=== PATIENT | male | born 1995 | race African-American/Black ===

== ENCOUNTER 2017-02-12 13:29 | Emergency (ER) | payer SELFPAY | END 2017-02-12 15:36 | disposition left against medical advice (07) | LOC: UCEAST 13:29 | DX: Z53.21 Procedure and treatment not carried out due to patient leaving prior to being seen by health care provider (principal) ==

== ENCOUNTER 2017-02-13 13:43 | Emergency (ER) | payer MEDICAID ==
[2017-02-13 14:10] VITALS: BP 131/65
--- NOTE | 2017-02-13 14:34 | UC ---
FLU HPI - HPI Summary HPI Summary: 21 y/o male with sore throat, cough that feels like coming from lungs, fever, chills x 4 days. + sinus pressure, pain - History of Current Complaint Chief Complaint: UCRespiratory Stated Complaint: RESP Time Seen by Provider: 02/13/17 14:12 Hx Obtained From: Patient Onset/Duration: Gradual Onset, Lasting Days Severity Currently: Mild Severity Initially: Moderate - Allergy/Home Medications Allergies/Adverse Reactions: Allergies Allergy/AdvReac Type Severity Reaction Status Date / Time Ibuprofen Allergy GI Upset Verified 01/21/16 11:58 PMH/Surg Hx/FS Hx/Imm Hx Previously Healthy: Yes - Surgical History Surgical History: Yes Surgery Procedure, Year, and Place: as , "twisted inside" - Family History Known Family History: Negative: Respiratory Disease - no FHX of asthma - Social History Alcohol Use: Rare Substance Use Type: None Substance Use Comment - Amount & Last Used: hx heroine, 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 Smoking Status (MU): Current Every Day Smoker Household Exposure Type: Cigarettes - Immunization History Most Recent Influenza Vaccination: none Review of Systems Constitutional: Fever, Chills, Fatigue ENT: Sore Throat, Sinus Congestion, Sinus Pain/Tenderness Respiratory: Cough Is Patient Immunocompromised?: No All Other Systems Reviewed And Are Negative: Yes Physical Exam Triage Information Reviewed: Yes Appearance: No Pain Distress, Well-Nourished, Ill-Appearing - mild Vital Signs: Initial Vital Signs Temp 100.3 F 02/13/17 14:06 Pulse 96 02/13/17 14:06 Resp 18 02/13/17 14:06 BP 131/65 02/13/17 14:06 Pulse Ox 99 02/13/17 14:06 Eyes: Positive: Conjunctiva Clear ENT: Positive: Pharyngeal erythema - mild with slight exudates noted on L side, TM red - + fluid levels Neck: Positive: Supple, Nontender, Enlarged Nodes @ - ~1cm noted submand. Respiratory: Positive: Chest non-tender, Lungs clear, Normal breath sounds, No respiratory distress, No accessory muscle use. Negative: Crackles, Rhonchi, Stridor, Wheezing Cardiovascular: Positive: RRR, No Murmur Neurological Exam: Normal Psychological Exam: Normal Skin Exam: Normal Flu Course/Dx - Course Course Of Treatment: rapid strep neg, antibitiotics given for sinusitts, follow up with PCP within 3-5 days if no improvement, conservative treatmnts, OTCS for symptoms. - Differential Dx/Diagnosis Provider Diagnoses: sinusitis Discharge - Discharge Plan Condition: Good Disposition: HOME Prescriptions: Amoxicillin PO (*) [Amoxicillin 500 MG CAP*] 500 mg PO TID #30 cap Patient Education Materials: Sinusitis (ED) Referrals: No Primary Care Phys,NOPCP [Primary Care Provider] - Additional Instructions: - Antibiotics as directed - Increase fluid intake - Motrin/ Tylenol as needed for pain - Follow up with PCP if no improvement within 48 hours
== END 2017-02-13 14:51 | disposition home or self-care (01) ==
LOC: UCEAST 13:43
DX: J32.9 Chronic sinusitis, unspecified (principal); F17.210 Nicotine dependence, cigarettes, uncomplicated
CPT/HCPCS: 87651; 99212; G0463

== ENCOUNTER 2017-07-10 19:19 | Emergency (ER) | payer MEDICAID ==
[2017-07-10 19:47] VITALS: BP 123/77
--- NOTE | 2017-07-10 20:18 | RAD ---
HISTORY: Right hand pain, trauma COMPARISONS: August 18, 2008 VIEWS: 2, Frontal and lateral views of the right hand FINDINGS: BONE DENSITY: Normal. BONES: There is no displaced fracture. JOINTS: There is no arthropathy. ALIGNMENT: There is no dislocation. SOFT TISSUES: Unremarkable. OTHER FINDINGS: None. IMPRESSION: NO ACUTE OSSEOUS INJURY. IF SYMPTOMS PERSIST, RECOMMEND REPEAT IMAGING.
--- NOTE | 2017-07-10 21:40 | UC ---
Benedicto Aguila Nilda, scribed for Booker Rodas MD on 07/10/17 at 2050 . Hand/Wrist HPI - HPI Summary HPI Summary: This patient is a 21 year old M presenting to [facility] [place] with a chief complaint of constant moderate right hand pain and swelling s/p punching a wall at noon. The patient rates the pain 5/10 in severity. Symptoms aggravated by movement and alleviated by rest. Patient reports decreased ROM secondary to pain. - History Of Current Complaint Chief Complaint: UCUpperExtremity Stated Complaint: HAND INJURY Time Seen by Provider: 07/10/17 19:49 Hx Obtained From: Patient Onset/Duration: Sudden Onset, Lasting Hours, Still Present Severity Currently: Moderate Pain Intensity: 5 Pain Scale Used: 0-10 Numeric Aggravating Factor(s): Movement Alleviating Factor(s): Rest Associated Signs And Symptoms: Positive: Swelling, Other - decreased right hand ROM secondary to pain - Allergies/Home Medications Allergies/Adverse Reactions: Allergies Allergy/AdvReac Type Severity Reaction Status Date / Time ibuprofen Allergy Severe GI Upset Verified 07/10/17 19:47 Home Medications: Home Medications NK [No Home Medications Reported] 07/10/17 [History Confirmed 07/10/17] PMH/Surg Hx/FS Hx/Imm Hx Respiratory History: Other Other Respiratory History: Seasonal allergies Psychological History: Other Other Psychological History: drug addiction - Surgical History Surgical History: Yes Surgery Procedure, Year, and Place: as , "twisted bowel". Hand surgeries. 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 GENERAL: Patient is a well developed and nourished M who is lying comfortable in the stretcher. Patient is not in any acute respiratory distress. HEAD AND FACE: Normocephalic EYES: PERRLA, EOMI x 2. EARS: Hearing grossly intact. MOUTH: Oropharynx within normal limits. NECK: Supple, trachea is midline, no adenopathy, no JVD, no carotid bruit. CHEST: Symmetric, no tenderness at palpation LUNGS: Clear to auscultation bilaterally. No wheezing or crackles. CVS: Regular rate and rhythm, S1 and S2 present, no murmurs or gallops appreciated. ABDOMEN: Soft, non-tender. Bowel sounds are normal. No abdominal abnormal pulsations. EXTREMITIES: Slight deformity in second metacarpal area of right hand with decreased ROM and swelling. NEURO: Alert and oriented x 3. No acute neurological deficits. Speech is normal and follows commands. SKIN: Dry and warm Triage Information Reviewed: Yes Vital Signs: Initial Vital Signs Temp 99.2 F 07/10/17 19:41 Pulse 71 07/10/17 19:41 Resp 16 07/10/17 19:41 BP 123/77 07/10/17 19:41 Pulse Ox 100 07/10/17 19:41 Vital Signs Reviewed: Yes Diagnostics - Radiology Hand XR Radiology Interpretation Completed By: Radiologist - Hand XR, per radiologist, reveals no acute osseous injury. If symptoms persist, recommend repeat imaging. Dr. Rodas has reviewed this radiology report. Re-Evaluation - Re-Evaluation First Eval Re-Evaluation Time: 20:26 Comment: Reviewed imaging results and D/C plan with patient. Patient is agreeable to D/C. Hand/Wrist Course/Dx - Course Course Of Treatment: This patient is a 21 year old M presenting to [facility] [place] with a chief complaint of constant moderate right hand pain and swelling s/p punching a wall at noon. The patient rates the pain 5/10 in severity. Symptoms aggravated by movement and alleviated by rest. Patient reports decreased ROM secondary to pain. Medications reviewed. Allergies reviewed. Hand XR, per radiologist, reveals no acute osseous injury. If symptoms persist, recommend repeat imaging. Dr. Rodas has reviewed this radiology report. Patient will be D/ C with f/u with PCP. I discussed all the findings and test results with the patient. Patient was instructed to return to the urgent care or go to ER immediately if any of the symptoms return or worsens. Plan of care was discussed with the patient, and patient understands and agrees. All questions were answered to patient satisfaction. There were no further complaints or concerns. The patient is hemodynamically stable, alert and oriented x3. The patient was found to have increase BP in UC. The patient will follow up with PCP for better control of BP. - Differential Dx/Diagnosis Differential Diagnosis/HQI/PQRI: Burn, Bursitis, Fracture, Sprain, Strain Provider Diagnoses: right hand pain Discharge - Sign-Out/Discharge Documenting (check all that apply): Discharge - Discharge Plan Condition: Stable Disposition: HOME Patient Education Materials: Arthralgia (ED) Referrals: [facility] [place] [facility]ICIAN REFERRAL [Outside] No Primary Care Phys,NOPCP [Primary Care Provider] - Additional Instructions: Take Ibuprofen or Tylenol for pain. FOLLOW UP WITH YOUR PRIMARY CARE PROVIDER WITHIN ONE WEEK FOR HIGH BLOOD PRESSURE NOTED TODAY. - Billing Disposition and Condition Condition: STABLE Disposition: HOME The documentation as recorded by the Benedicto owen Nilda accurately reflects the service I personally performed and the decisions made by , Booker Rodas MD.
== END 2017-07-10 20:32 | disposition home or self-care (01) ==
LOC: UCEAST 19:19
DX: M79.641 Pain in right hand (principal); M79.89 Other specified soft tissue disorders; J30.2 Other seasonal allergic rhinitis; Z88.6 Allergy status to analgesic agent; F17.210 Nicotine dependence, cigarettes, uncomplicated
CPT/HCPCS: 99211; G0463

== ENCOUNTER 2017-09-28 12:28 | Emergency (ER) | payer OTHER ==
[2017-09-28] MEDS ORDERED: NS 0.9% 1000 ML* 1,000 ML IV ONE (13:11)
[2017-09-28] MEDS ORDERED: Clindamycin 600 MG IVPREMIX(* 600 MG/50 ML SDV IV ONE (13:11)
[2017-09-28] MEDS ORDERED: Ketorolac INJ* 30 MG/ML 1 ML VIAL IV PUSH ONE (13:12)
[2017-09-28 13:36] LABS: Hematocrit 43 % (42-52); Hemoglobin 14.2 g/dl (14.0-18.0); Mean Corpuscular HGB Conc 33 g/dl (31-36); Mean Corpuscular Hemoglobin 28 pg (27-31); Mean Corpuscular Volume 86 fL (80-94); Mean Platelet Volume 7.8 um3 (7.4-10.4); Platelet Count 200 10^3/ul (150-450); Red Blood Count 5.02 10^6/ul (4.0-5.4); Red Cell Distribution Width 14 % (10.5-15); White Blood Count 11.3 10^3/ul (3.5-10.8)
[2017-09-28 13:53] LABS: EGFR Non-African American 100.7 (>60)
--- NOTE | 2017-09-28 14:07 | ED ---
Throat Pain/Nasal Congestion - HPI Summary HPI Summary: Patient is a 21-year-old male who presents emergency department for dental pain and facial swelling 3 days. Associated symptoms of chills. No past medical history. Patient states he's been having difficulty swallowing secondary to pain. Symptoms are mild to moderate in severity. Eating and touching affected area makes symptoms worse. Nothing makes symptoms better. - History of Current Complaint Chief Complaint: EDDentalPain Time Seen by Provider: 09/28/17 12:41 Hx Obtained From: Patient - Allergies/Home Medications Allergies/Adverse Reactions: Allergies Allergy/AdvReac Type Severity Reaction Status Date / Time ibuprofen Allergy Severe GI Upset Verified 07/10/17 19:47 Home Medications: Home Medications Gabapentin CAP(*) [Neurontin 100 mg CAP(*)] 200 mg PO BID 09/28/17 [History Confirmed 09/28/17] PMH/Surg Hx/FS Hx/Imm Hx Previously Healthy: Yes Respiratory History: Reports: Hx Seasonal Allergies Sensory History: Denies: Hx Contacts or Glasses - Has a rx but does not wear them Opthamlomology History: Denies: Hx Contacts or Glasses - Has a rx but does not wear them Psychiatric History: Reports: Hx Substance Abuse - Surgical History Surgery Procedure, Year, and Place: as , "twisted bowel". Hand surgeries. 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 sitting in chair. Appears uncomfortable but nontoxic. Skin: Positive: Warm, Dry Head/Face: Positive: Normal Head/Face Inspection Eyes: Positive: Normal Dental: Positive: Other - Moderate edema noted to the right mandibular region. Edema mildly extends under the jaw line. Mild trismus. Poor dentition noted throughout. Right bottom gums are erythematous and edematous. No drainable abscess noted. No necrosis. No swelling in the tongue. Neck: Positive: Supple Neurological: Positive: Normal, CN Intact II-III Psychiatric: Positive: Normal Diagnostics - Vital Signs Vital Signs Temp Pulse Resp BP Pulse Ox 09/28/17 12:31 97.6 F 72 19 136/81 100 - Laboratory Lab Results: Lab Results 09/28/17 09/28/17 Range/Units 13:27 13:27 WBC 11.3 H (3.5-10.8) 10^3/ul RBC 5.02 (4.0-5.4) 10^6/ul Hgb 14.2 (14.0-18.0) g/dl Hct 43 (42-52) % MCV 86 (80-94) fL MCH 28 (27-31) pg MCHC 33 (31-36) g/dl RDW 14 (10.5-15) % Plt Count 200 (150-450) 10^3/ul MPV 7.8 (7.4-10.4) um3 Sodium 138 L (139-145) mmol/L Potassium 4.0 (3.5-5.0) mmol/L Chloride 103 (101-111) mmol/L Carbon Dioxide 28 (22-32) mmol/L Anion Gap 7 (2-11) mmol/L BUN 13 (6-24) mg/dL Creatinine 0.93 (0.67-1.17) mg/dL Est GFR ( Amer) 129.5 (>60) Est GFR (Non-Af Amer) 100.7 (>60) BUN/Creatinine Ratio 14.0 (8-20) Glucose 101 H (70-100) mg/dL Calcium 9.3 (8.6-10.3) mg/dL Total Bilirubin 0.50 (0.2-1.0) mg/dL AST 22 (13-39) U/L ALT 18 (7-52) U/L Alkaline Phosphatase 42 (34-104) U/L Total Protein 7.3 (6.4-8.9) g/dL Albumin 4.5 (3.2-5.2) g/dL Globulin 2.8 (2-4) g/dL Albumin/Globulin Ratio 1.6 (1-3) Result Diagrams: 09/28/17 13:27 09/28/17 13:27 Lab Statement: Any lab studies that have been ordered have been reviewed, and results considered in the medical decision making process. EENT Course/Dx - Course Course Of Treatment: Pt. presenting with moderate facial swelling with probable dental abscess. He is afebrile with stable vital signs. Given extent of facial edema CT scanand labs were ordered for further evaluation. Pt. was started on IV fluids, clindamycin, and toradol. maxillofacial CT per radiology: IMPRESSION : Osteomyelitis of the RIGHT mandible surrounding the roots of the first molar. 1510 results were discussed with pt. and explained to him he will need to stay in the hospital for further IV antibx and oral surgical consult. Pt. states he needs to pick his child up from school at 4 and cannot stay. He states he has no other family to pick him up. Pt. states he will return for further treatment after he picks his son up. Will sign out AMA. Pt. has decision making capacity. Explained infection can spread to blood and lead to if not treated. Pt. expression understanding of severity of infection and wishes to leave ER. 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 Pt. pulled out his IV and left the ER before signing AMA form. I was unable to inform pt. that we do not have oral surgery coverage at [facility] and he would need to be transferred. - Differential Diagnoses Differential Diagnoses: Dental Abscess, Gingivitis, Periodontic Abscess, Periodontic Disease - Diagnoses Provider Diagnoses: Osteomyelitis of mandible, Dental abscess Discharge - Sign-Out/Discharge Documenting (check all that apply): Discharge/Admit/Transfer - Discharge Plan Condition: Stable Disposition: AGAINST MEDICAL ADVICE Referrals: No Primary Care Phys,NOPCP [Primary Care Provider] - - Billing Disposition and Condition Condition: STABLE Disposition: Against Medical Advice
[2017-09-28] MEDS ORDERED: Iohexol 300* (CONTRAST) 10 ML SDV IV ONE (14:30)
--- NOTE | 2017-09-28 15:04 | RAD ---
INDICATION: Dental pain/abscess since . RIGHT face swelling. COMPARISON: No relevant prior exams available on the [facility] for comparison. TECHNIQUE: Multidetector CT base of the skull through mandible with 75 mL Omnipaque 300 contrast. Multiplanar reformation. REPORT: Artifact from dental amalgam. There is osteophytosis around the roots of the RIGHT first mandibular molar with extension to the cortex laterally and periosseous abscess measuring up to 1.1 cm AP by 0.8 cm transverse by 1.2 cm cephalocaudal. Extensive surrounding deep and superficial soft tissue edema without additional visualized loculated fluid collection. Negative for lymphadenopathy by short axis size criteria. Unremarkable parotid and submandibular glands. Patent bilateral internal jugular veins. Unremarkable pharyngeal mucosal space contours and parapharyngeal fat. [facility] images saved on the [facility]. IMPRESSION: Osteomyelitis of the RIGHT mandible surrounding the roots of the first molar with osteolysis of the cortex laterally contiguous with a periosseous 1.1 x 0.8 x 1.2 cm abscess collection.
[2017-09-28 15:22] VITALS: BP 144/83
== END 2017-09-28 15:29 | disposition left against medical advice (07) ==
LOC: ED 12:28
DX: M27.2 Inflammatory conditions of jaws (principal); K04.7 Periapical abscess without sinus; F17.210 Nicotine dependence, cigarettes, uncomplicated; Z88.6 Allergy status to analgesic agent
CPT/HCPCS: 36415; 70487; 80053; 85027; 96374; 96375; 99283; J1885; Q9967

== ENCOUNTER 2017-09-29 03:13 | Observation (INO) | payer OTHER ==
[2017-09-29] MEDS ORDERED: NS 0.9% 1000 ML* 1,000 ML IV ONE (03:34)
[2017-09-29] MEDS ORDERED: Vancomycin(*) 1,000 MG in NS 0.9% 250 ML* 250 ML IVPB ONE (03:35)
[2017-09-29] MEDS ORDERED: Metoclopramide IV* 5 MG/ML 2 ML VIAL IV SLOW PU ONE (03:35)
[2017-09-29] MEDS ORDERED: Morphine VIAL* 4 MG/ML VIAL (1 ml vial) IV ONE (03:35)
[2017-09-29] MEDS ORDERED: Piperacillin/Tazobac ADVAN(*) 3.375 GM in NS 0.9% 100 ML* 100 ML IVPB ONE (03:35)
[2017-09-29 04:09] LABS: ABS Basophils 0 10^3/ul (0-0.2); ABS Eosinophils 0 10^3/ul (0-0.6); ABS Lymphocytes 1.1 10^3/ul (1.0-4.8); ABS Monocytes 0.7 10^3/ul (0-0.8); ABS Neutrophils 15.5 10^3/ul (1.5-7.7); ABS Nucleated RBC 0 10^3/ul; Eosinophil % 0 % (0-6); Hematocrit 44 % (42-52); Hemoglobin 14.3 g/dl (14.0-18.0); Lymphocyte % 6.5 % (25-47); Mean Corpuscular HGB Conc 33 g/dl (31-36); Mean Corpuscular Hemoglobin 29 pg (27-31); Mean Corpuscular Volume 86 fL (80-94); Nucleated Red Blood Cells % 0; Platelet Count 209 10^3/ul (150-450); Red Blood Count 5.03 10^6/ul (4.0-5.4); Red Cell Distribution Width 15 % (10.5-15); White Blood Count 17.4 10^3/ul (3.5-10.8)
[2017-09-29 04:24] LABS: EGFR Non-African American 129.1 (>60)
--- NOTE | 2017-09-29 05:14 | ED ---
Santiago Aguila Jade, scribed for Mayte Townsend MD on 09/29/17 at 0433 . Complex/Multi-Sys Presentation - HPI Summary HPI Summary: Pt is a 21 y/o male who presents with right-sided jaw and dental pain. He was here yesterday with the same complaint, but left because he had to sweet pickle maker his son. Pt states the pain began 1 week ago, but became worse a few days ago. He denies any fever, PMHx of HTN, or alcohol use tonight. Pt took Acetaminophen for the pain. - History Of Current Complaint Chief Complaint: EDDentalPain Time Seen by Provider: 09/29/17 03:21 Hx Obtained From: Patient Onset/Duration: Gradual Onset, Still Present Timing: Constant Severity Currently: Severe - 11/30 Location: Pain At: - Right jaw - Allergies/Home Medications Allergies/Adverse Reactions: Allergies Allergy/AdvReac Type Severity Reaction Status Date / Time ibuprofen Allergy Severe GI Upset Verified 07/10/17 19:47 PMH/Surg Hx/FS Hx/Imm Hx Endocrine/Hematology History: Denies: Hx Diabetes Cardiovascular History: Denies: Hx Hypertension Respiratory History: Reports: Hx Seasonal Allergies Sensory History: Denies: Hx Contacts or Glasses - Has a rx but does not wear them Opthamlomology History: Denies: Hx Contacts or Glasses - Has a rx but does not wear them Psychiatric History: Reports: Hx Substance Abuse - Surgical History Surgery Procedure, Year, and Place: as , "twisted bowel". Hand surgeries. 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 GENERAL: ~Patient is a well-developed and nourished male who is lying comfortable in the stretcher. Patient is not in any acute respiratory distress. HEAD AND FACE: No signs of trauma. Swelling and tenderness over the right side of the jaw. EYES: PERRLA, EOMI x 2, No injected conjunctiva, no nystagmus. EARS: Hearing grossly intact. Ear canals and tympanic membranes are within normal limits. MOUTH: Oropharynx within normal limits. NECK: Supple, trachea is midline, no adenopathy, no JVD, no carotid bruit, no c- spine tenderness, neck with full ROM. CHEST: Symmetric, no tenderness at palpation LUNGS: Clear to auscultation bilaterally. No wheezing or crackles. CVS: Regular rate and rhythm, S1 and S2 present, no murmurs or gallops appreciated. ABDOMEN: Soft, non-tender. No signs of distention. No rebound no guarding, and no masses palpated. Bowel sounds are normal. EXTREMITIES: FROM in all major joints, no edema, no cyanosis or clubbing. NEURO: Alert and oriented x 3. No acute neurological deficits. Speech is normal and follows commands. SKIN: Dry and warm Triage Information Reviewed: Yes Vital Signs On Initial Exam: Initial Vitals Temp Pulse Resp BP Pulse Ox 98.1 F 83 20 151/95 99 09/29/17 03:15 09/29/17 03:15 09/29/17 03:15 09/29/17 03:15 09/29/17 03:15 Vital Signs Reviewed: Yes Diagnostics - Vital Signs Vital Signs Temp Pulse Resp BP Pulse Ox 09/29/17 03:15 98.1 F 83 20 151/95 99 - Laboratory Result Diagrams: 09/29/17 04:00 09/29/17 04:00 Lab Statement: Any lab studies that have been ordered have been reviewed, and results considered in the medical decision making process. - CT CT maxillofacial CT Interpretation: Positive (See Comments) - Osteomyelitis of the right mandible surrounding the roots of the first molar with osteolysis of the cortex laterally contiguous with a periosseous 1.1 x 0.8 x 1.2 cm abscess collection. ED physician reviewed radiology report. Pending official report. CT Interpretation Completed By: Radiologist Complex Multi-Symp Course/Dx Course Of Treatment: Pt is a 21 y/o male who presents with right-sided jaw and dental pain, and was here yesterday with the same complaint. Pt states the pain began 1 week ago, but became worse a few days ago. He denies any fever, PMHx of HTN, or alcohol use tonight. Pt took Acetaminophen for the pain. A CT maxillofacial revealed osteomyelitis of the right mandible surrounding the roots of the first molar with osteolysis of the cortex laterally contiguous with a periosseous 1.1 x 0.8 x 1.2 cm abscess collection. In the ED course, pt was given Reglan, Morphine, Vancomycin, Zosyn, and fluids. Patient will be admitted to Dr. Barrios with final Dx of osteomyelitis and abscess. Pt is agreeable with this plan. Allergies noted. - Diagnoses Provider Diagnoses: Osteomyelitis, Abscess - Physician Notifications Discussed Care Of Patient With: Uri Barrios Time Discussed With Above Provider: 04:45 Instructed by Provider To: Other - Accept pt for admission Discharge - Sign-Out/Discharge Documenting (check all that apply): Discharge/Admit/Transfer - Admit - Discharge Plan Condition: Stable Disposition: ADMITTED TO [facility] Referrals: No Primary Care Phys,NOPCP [Primary Care Provider] - The documentation as recorded by the Santiago owen Jade accurately reflects the service I personally performed and the decisions made by , Mayte Townsend MD.
--- NOTE | 2017-09-29 05:19 | HP ---
H&P (Free Text) History and Physical: PCP: none Date/Time: 09/29/2017 0530 CC: R jaw pain & swelling HPI: Mr Carter is a 21YO male HX IV heroin abuse who reports onset ~1 week ago of R mandibular pain gradually progressing to include swelling. The pain & swelling has accelerated over the last 2 days. He denies F/C, sweats, N/V/D, abdominal pain, chest pain, SOB, palpitations, and light-headedness. He states his last heroin use was "years and years" ago, although records show he presented to [facility] in 2014 with complaint of withdrawals. PMedHx IV heroin abuse Ambulatory Orders Gabapentin CAP(*) [Neurontin 100 mg CAP(*)] 200 mg PO BID 09/28/17 Allergies ibuprofen Adverse Reaction (Verified 09/29/17 06:19) GI Upset PSurgHx wisdom tooth extraction abdominal surgery as a child for "twisted intestines" SocHx: 1/2 PPD, no alcohol, occasional marijuana, HX IV heroin; single; full code status FamHx: Mother: healthy; Father: healthy; brother x2: healthy ROS: as above, otherwise reviewed and all were negative vitals: Vital Signs Temp 36.7 C 09/29/17 03:15 Pulse 85 09/29/17 06:01 Resp 18 09/29/17 04:03 BP 137/79 09/29/17 05:59 Pulse Ox 98 09/29/17 06:01 Intake & Output 09/28/17 09/28/17 09/29/17 11:59 23:59 11:59 Weight 68.039 kg Constitutional: NAD, normally developed, well-nourished white male HEENM: atraumatic; sclera/conjunctiva: anicteric/clear; hearing: clinically intact; oropharynx: clear, mucosa moist Neck: soft tissue: tender shotty lymphadenopathy R superior anterior cervical chain; thyroid: normal Pulmonary: clear to auscultation bilaterally, good aeration, no accessory muscle use CV: RR/RR, normal S1S2, no carotid bruit, no jugular venous distention, 2+ B DP/ PT, no edema Abdominal: soft, non-distended, non-tender, no rebound/guarding/rigidity, normoactive bowel sounds, no hepatosplenomegaly or masses, no costovertebral angle tenderness Musculoskeletal: general: grossly intact, non-tender Integumental: normal appearance and texture of exposed skin Psychiatric orientation: AA&O to PPS affect: calm mood: cooperative eye contact: fair content: seemingly reliable responses: timely insight: fair Testing: Lab Results 09/29/17 09/29/17 09/29/17 Range/Units 04:00 04:00 04:00 WBC 17.4 H (3.5-10.8) 10^3/ul RBC 5.03 (4.0-5.4) 10^6/ul Hgb 14.3 (14.0-18.0) g/dl Hct 44 (42-52) % MCV 86 (80-94) fL MCH 29 (27-31) pg MCHC 33 (31-36) g/dl RDW 15 (10.5-15) % Plt Count 209 (150-450) 10^3/ul MPV 8.0 (7.4-10.4) um3 Neut % (Auto) 89.0 H (38-83) % Lymph % (Auto) 6.5 L (25-47) % Atkinson % (Auto) 4.2 (0-7) % Eos % (Auto) 0 (0-6) % Baso % (Auto) 0.3 (0-2) % Absolute Neuts (auto) 15.5 H (1.5-7.7) 10^3/ul Absolute Lymphs (auto) 1.1 (1.0-4.8) 10^3/ul Absolute Monos (auto) 0.7 (0-0.8) 10^3/ul Absolute Eos (auto) 0 (0-0.6) 10^3/ul Absolute Basos (auto) 0 (0-0.2) 10^3/ul Absolute Nucleated RBC 0 10^3/ul Nucleated RBC % 0 Sodium 136 L (139-145) mmol/L Potassium 3.5 (3.5-5.0) mmol/L Chloride 99 L (101-111) mmol/L Carbon Dioxide 26 (22-32) mmol/L Anion Gap 11 (2-11) mmol/L BUN 9 (6-24) mg/dL Creatinine 0.75 (0.67-1.17) mg/dL Est GFR ( Amer) 166.0 (>60) Est GFR (Non-Af Amer) 129.1 (>60) BUN/Creatinine Ratio 12.0 (8-20) Glucose 116 H (70-100) mg/dL Lactic Acid 2.0 (0.5-2.0) mmol/L Calcium 9.7 (8.6-10.3) mg/dL Total Bilirubin 0.90 (0.2-1.0) mg/dL AST 23 (13-39) U/L ALT 19 (7-52) U/L Alkaline Phosphatase 49 (34-104) U/L C-Reactive Protein 50.53 H (< 5.00) mg/L Total Protein 7.7 (6.4-8.9) g/dL Albumin 4.7 (3.2-5.2) g/dL Globulin 3.0 (2-4) g/dL Albumin/Globulin Ratio 1.6 (1-3) CT maxillofacial WO, personally reviewed: IMPRESSION: Osteomyelitis of the RIGHT mandible surrounding the roots of the first molar with osteolysis of the cortex laterally contiguous with a periosseous 1.1 x 0.8 x 1.2 cm abscess collection. Impression: 21M HX IV heroin abuse presents with acute R mandibular osteomyelitis w/ abscess formation DIAGNOSIS & PLAN Primary acute R mandibular osteomyelitis w/ abscess formation : IV vancomycin & cefepime : blood CXs : consider oral surgery consult in AM : pain control via non-narcotics given HX of abuse : supportive care Secondary tobacco use disorder/polysubstance abuse : cessation advised, low motivation Admission Rational: inpatient for IV ABX & IVFs; inappropriate for outpatient setting DVTp: KATHARINE Code Status: full
[2017-09-29] MEDS ORDERED: Acetaminophen TAB* 325 MG PO PRN (05:42)
[2017-09-29] MEDS ORDERED: Melatonin 3 MG TAB PO PRN (05:42)
[2017-09-29] MEDS ORDERED: Albuterol 2.5 MG/3 ML NEB.SOL* (0.083%) INH PRN (05:42)
[2017-09-29] MEDS ORDERED: Ondansetron ODT TAB* 4 MG PO PRN (05:42)
[2017-09-29] MEDS ORDERED: Vancomycin per Pharmacy* NOTE FOLLOW UP SCH (06:00)
[2017-09-29] MEDS ORDERED: Ketorolac INJ* 15 MG/ML 1 ML VIAL IV PRN (06:20)
[2017-09-29] MEDS ORDERED: traMADol TAB* 50 MG ONE (06:36)
[2017-09-29] MEDS: traMADol TAB* 50 MG PO PRN ×3 (06:37→19:15)
[2017-09-29] MEDS: Gabapentin CAP(*) 100 MG PO SCH ×2 (08:07→19:15)
[2017-09-29] MEDS: Vancomycin(*) 1,000 MG in NS 0.9% 250 ML* 250 ML IVPB SCH ×2 (10:45→15:51)
[2017-09-29] MEDS ORDERED: Nicotine PATCH 21 MG/24 HR* PATCH TRANSDERM SCH (11:00)
[2017-09-29] MEDS ORDERED: Nicotine Inhaler* 10 MG AMP INH PRN (11:28)
[2017-09-29] MEDS ORDERED: Mouth Piece, Nicotine* 1 EACH CARTRIDGE INH PRN (11:28)
[2017-09-29] MEDS ORDERED: Cefepime 1 GM in Dextrose(*) 1 GM/50 ML BAG IV SCH (12:00)
[2017-09-29] MEDS ORDERED: oxyCODONE/Acetamin 5/325 MG* TAB PO PRN (15:24)
--- NOTE | 2017-09-29 15:30 | PN ---
Subjective Date of Service: 09/29/17 Interval History: C/O pain R mandible for 3 days, only briefly relieved by tramadol. Objective Active Medications: Acetaminophen (Tylenol Tab*) 650 mg PO Q6H PRN PRN Reason: FEVER/PAIN Albuterol (Ventolin 2.5 Mg/3 Ml Neb.Tiffanie*) 2.5 mg INH Q2H PRN PRN Reason: SOB/WHEEZING Device (Nicotine Mouth Piece*) 1 each INH .USE WITH NICOTROL PRN PRN Reason: CRAVING Last Admin: 09/29/17 11:43 Dose: 1 each Gabapentin (Neurontin Cap(*)) 200 mg PO BID [facility] Last Admin: 09/29/17 08:07 Dose: 200 mg Cefepime HCl (Maxipime 1 Gm In Dextrose Duplex (*)) 1 gm in 50 mls @ 100 mls/ hr IV Q12H [facility] Last Admin: 09/29/17 12:33 Dose: 100 mls/hr Vancomycin HCl 1,000 mg/ (Sodium Chloride) 250 mls @ 166.667 mls/hr IVPB Q6H [facility] Last Admin: 09/29/17 10:45 Dose: 166.667 mls/hr Ketorolac Tromethamine (Toradol Inj*) 15 mg IV Q6H PRN PRN Reason: PAIN Last Admin: 09/29/17 08:06 Dose: 15 mg Nicotine (Nicotine Patch 21 Mg/24 Hr*) 1 patch TRANSDERM DAILY@0800 [facility] Last Admin: 09/29/17 11:11 Dose: 1 patch Nicotine (Nicotine Inhaler*) 10 mg INH Q2H PRN PRN Reason: CRAVING Last Admin: 09/29/17 11:43 Dose: 10 mg Omeprazole (Prilosec Cap*) 20 mg PO DAILY@0600 [facility] Ondansetron HCl (Zofran Odt Tab*) 4 mg PO Q6H PRN PRN Reason: n/v Oxycodone/Acetaminophen (Percocet 5/325 Tab*) 1 tab PO Q4H PRN PRN Reason: PAIN Pharmacy Consult (Vancomycin Per Pharmacy*) 1 note FOLLOW UP .VANC PER PHARMACY [facility] Pharmacy Profile Note (Vancomycin Trough Check) 1 note FOLLOW UP ONCE ONE Stop: 09/30/17 09:31 Tramadol HCl (Ultram*) 50 mg PO Q6H PRN PRN Reason: PAIN Last Admin: 09/29/17 12:32 Dose: 50 mg Vital Signs - 8 hr 09/29/17 09/29/17 09/29/17 08:00 08:07 10:49 Temperature Pulse Rate Respiratory 16 16 16 Rate Blood Pressure (mmHg) O2 Sat by Pulse 100 Oximetry 09/29/17 09/29/17 10:58 12:32 Temperature 99.3 F Pulse Rate 77 Respiratory 15 18 Rate Blood Pressure 132/71 (mmHg) O2 Sat by Pulse 99 Oximetry Oxygen Devices in Use Now: None Appearance: Alert, partly up in bed. Looks somewhat uncomfortable. Eyes: No Scleral Icterus Neck: No Thyroid Enlargement, Masses, - - swelling R jaw, very tender Cardiovascular: NL Sounds; No Murmurs; No JVD, RRR, No Edema, - Abdominal: NL Sounds; No Tenderness; No Distention, No Hepatosplenomegaly, - Skin: No Rash or Ulcers, No Nodules or Sclerosis, - Neurological: Alert and Oriented x 3, NL Sensation Result Diagrams: 09/29/17 04:00 09/29/17 04:00 Assess/Plan/Problems-Billing Assessment: - Patient Problems (1) Osteomyelitis of mandible Current Visit: Yes Status: Acute Code(s): M27.2 - INFLAMMATORY CONDITIONS OF JAWS SNOMED Code(s): 259369768 Comment: osteo R mandible surrounding molar roots, extending to cortex and contiguous with 1.2 cm abcess. Continue cefepime/vanco. Message to Dr. Sanchez to call me back (office: [phone], ans service [phone].
[2017-09-29 16:27] VITALS: BP 136/77
--- NOTE | 2017-09-29 19:32 | TRS ---
TRANSFER SUMMARY DATE OF ADMISSION: 09/29/17 DATE OF TRANSFER: 09/29/17 This 21-year-old man presented with right jaw pain and swelling of 3 days' duration. He denied fevers , chills, sweats, etc. He had obvious swelling of right jaw area. He had maxillofacial CT scan that s howed osteomyelitis of the right mandible surrounding the molar roots and extending to the cortex and contiguous to 1.1 x 0.8 x 1.2 cm abscess. He was treated with cefepime and vancomycin. The patient is transferred to [facility] for oral surgical care. FINAL DIAGNOSES: 1. Right mandible osteomyelitis with abscess formation. 2. IV drug abuse. 3. Tobacco abuse. [id number]/[facility] #: [id number]
[2017-09-30] MEDS ORDERED: Omeprazole CAP* 20 MG PO SCH (06:00)
[2017-09-30] MEDS ORDERED: Vancomycin Trough Check NOTE FOLLOW UP ONE (09:30)
--- NOTE | 2017-09-30 15:02 | PN ---
Progress Note - Progress Note Date of Service: 09/30/17 Note: Time spen on discharge 50 minutes.
== END 2017-09-29 19:15 | disposition short-term general hospital (02) | DRG 114 ==
LOC: ED 03:13 → MED 05:40 → INTOOBSV 05:40
PROVIDERS: ADMIT Hospitalist; ATTEND Internal Medicine
DX: M27.2 Inflammatory conditions of jaws (principal); F11.10 Opioid abuse, uncomplicated; F17.210 Nicotine dependence, cigarettes, uncomplicated; I10 Essential (primary) hypertension; J30.2 Other seasonal allergic rhinitis; Z88.6 Allergy status to analgesic agent; K08.89 Other specified disorders of teeth and supporting structures
CPT/HCPCS: 36415; 80053; 83605; 85025; 86140; 87040; 99283; 99406; A9270-GY; G0378; J0692; J1885; J2270; J2543; J2765; J3370

== ENCOUNTER 2017-10-01 14:15 | Emergency (ER) | payer OTHER ==
[2017-10-01 14:56] VITALS: BP 120/73
--- NOTE | 2017-10-01 15:39 | UC ---
Dental HPI - HPI Summary HPI Summary: This gentleman comes to the urgent care today with his mother. He eloped from [facility] today, stating he was frustrated about his care getting a tooth extracted. He arrived at [facility] due to osteomyelitis in his right jaw for further treatment. Patient did not get his discharge instructions from the hospitalist, as he did not go back up to the unit after having consultation at dental clinic at [facility]. Patient states he has a referral to an oral surgeon an [facility] but that doctor does not take his insurance. Patient calls [facility] and they do not extracted tooth #30 they are looking for a oral surgeon to see him as well. Copious amounts of emotional support and understanding provided to the patient who accused me on several occasions about not caring about his jaw. At the end of the conversation patient stated he would return to [facility] but left the for home without waiting for discharge instructions. Patient's mother , Gissell Clarke, is driving patient today. - History of Current Complaint Hx Obtained From: Patient, Family/Director Video Onset/Duration: Gradual Onset, Lasting Days, Still Present Pain Intensity: 7 Pain Scale Used: 0-10 Numeric Aggravating Factor(s): Nothing Alleviating Factor(s): Nothing Related History: Previous Dental Care on Same Tooth, Swelling - right lower jaw <Carri Joshi - Last Filed: 10/01/17 15:53> <Eryn Mayo - Last Filed: 10/01/17 16:35> - History of Current Complaint Chief Complaint: UCDentalProblem Stated Complaint: DENTAL Time Seen by Provider: 10/01/17 15:09 - Allergies/Home Medications Allergies/Adverse Reactions: Allergies Allergy/AdvReac Type Severity Reaction Status Date / Time ibuprofen AdvReac GI Upset Verified 10/01/17 14:48 PMH/Surg Hx/FS Hx/Imm Hx Previously Healthy: No Psychological History: Other Other Psychological History: impulse control issues - Surgical History Surgical History: Yes Surgery Procedure, Year, and Place: as , "twisted bowel". Hand surgeries. - Family History Known Family History: Positive: Other Negative: Respiratory Disease - no FHX of asthma Family History: Alcohol abuse disorder - Social History Occupation: Unemployed Lives: With Family Alcohol Use: None Substance Use Type: Marijuana Substance Use Comment - Amount & Last Used: hx heroin, 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 Smoking Status (MU): Current Every Day Smoker Type: Cigarettes Amount Used/How Often: 1/4 PPD Household Exposure Type: Cigarettes - Immunization History Most Recent Influenza Vaccination: none Most Recent Pneumonia Vaccination: Never <Carri Joshi - Last Filed: 10/01/17 15:53> Review of Systems Constitutional: Negative Skin: Negative Eyes: Negative ENT: Negative, Other - right lower dental abscess Respiratory: Negative Cardiovascular: Negative Gastrointestinal: Negative Genitourinary: Negative Motor: Negative Neurovascular: Negative Musculoskeletal: Negative Neurological: Negative Psychological: Negative Is Patient Immunocompromised?: No All Other Systems Reviewed And Are Negative: Yes <Carri Joshi - Last Filed: 10/01/17 15:53> Physical Exam Triage Information Reviewed: Yes Appearance: Well-Appearing, No Pain Distress, Well-Nourished Vital Signs: Initial Vital Signs Temp 99.7 F 10/01/17 14:50 Pulse 77 10/01/17 14:50 Resp 16 10/01/17 14:50 BP 120/73 10/01/17 14:50 Pulse Ox 100 10/01/17 14:50 Vital Signs Reviewed: Yes Eye Exam: Normal Eyes: Positive: Conjunctiva Clear ENT Exam: Normal ENT: Positive: Normal ENT inspection, Hearing grossly normal. Negative: Trismus , Muffled voice, Hoarse voice Dental Exam: Normal Neck: Positive: Other: - swelling right lower jaw Respiratory Exam: Other - patient did not allow for examination appeared in no respiratory comprimise Cardiovascular Exam: Other - skin appears pink and dry left prior to assessment Musculoskeletal Exam: Other - gait steady moving all extremitis Neurological Exam: Normal Neurological: Positive: Alert, Muscle Tone Normal Psychological Exam: Other - appears to have impulse control limitations in his conversation Skin Exam: Other - no rashes or lesions observed during interview <Carri Joshi - Last Filed: 10/01/17 15:53> Vital Signs: Initial Vital Signs Temp 99.7 F 10/01/17 14:50 Pulse 77 10/01/17 14:50 Resp 16 10/01/17 14:50 BP 120/73 10/01/17 14:50 Pulse Ox 100 10/01/17 14:50 <Eryn Mayo - Last Filed: 10/01/17 16:35> Dental Complaint Course/Dx - Course Course Of Treatment: Patient left without discharge resections. Patient states he's going to the hospital for further assessment. Patient's mother was present during the entire conversation and followed him out of the room as she is driving him - Differential Dx/Diagnosis Provider Diagnoses: right lower jaw dental abscess, osteomyelitis by history in right mandible <Carri Joshi - Last Filed: 10/01/17 15:53> Discharge - Sign-Out/Discharge Documenting (check all that apply): Discharge/Admit/Transfer - Discharge Plan Discharge Disposition Comment: please go directly to the emergency department for further assessment of ja - Billing Disposition and Condition Condition: STABLE Disposition: Elopement <Carri Joshi - Last Filed: 10/01/17 15:53> - Billing Disposition and Condition Condition: STABLE Disposition: Elopement <Eryn Mayo - Last Filed: 10/01/17 16:35> - Discharge Plan Condition: Stable Disposition: ELOPEMENT Referrals: No Primary Care Phys,NOPCP [Primary Care Provider] - Attestation Statement User Type: Provider - I was available for consult. This patient was seen by the LISA. The patient was not presented to, seen by, or examined by me. -Ambika <Eryn Mayo - Last Filed: 10/01/17 16:35>
== END 2017-10-01 15:49 | disposition left against medical advice (07) ==
LOC: UCEAST 14:15
DX: K04.7 Periapical abscess without sinus (principal); M27.2 Inflammatory conditions of jaws; F63.9 Impulse disorder, unspecified; Z88.6 Allergy status to analgesic agent; F17.210 Nicotine dependence, cigarettes, uncomplicated; Z81.1 Family history of alcohol abuse and dependence
CPT/HCPCS: 99212; G0463

== ENCOUNTER 2017-10-01 19:32 | Emergency (ER) | payer OTHER ==
[2017-10-01 19:47] VITALS: BP 166/82
[2017-10-01] MEDS ORDERED: Vancomycin(*) 1,000 MG in NS 0.9% 250 ML* 250 ML IVPB ONE (21:24)
[2017-10-01 21:26] LABS: ABS Basophils 0.1 10^3/ul (0-0.2); ABS Eosinophils 0.1 10^3/ul (0-0.6); ABS Lymphocytes 1.4 10^3/ul (1.0-4.8); ABS Monocytes 0.5 10^3/ul (0-0.8); ABS Neutrophils 8.8 10^3/ul (1.5-7.7); ABS Nucleated RBC 0 10^3/ul; Eosinophil % 0.6 % (0-6); Hematocrit 44 % (42-52); Hemoglobin 14.6 g/dl (14.0-18.0); Lymphocyte % 12.9 % (25-47); Mean Corpuscular HGB Conc 34 g/dl (31-36); Mean Corpuscular Hemoglobin 29 pg (27-31); Mean Corpuscular Volume 86 fL (80-94); Mean Platelet Volume 7.8 um3 (7.4-10.4); Nucleated Red Blood Cells % 0; Platelet Count 297 10^3/ul (150-450); Red Blood Count 5.08 10^6/ul (4.00-5.40); Red Cell Distribution Width 14 % (10.5-15); White Blood Count 10.8 10^3/ul (3.5-10.8)
--- NOTE | 2017-10-01 21:27 | ED ---
Throat Pain/Nasal Congestion - HPI Summary HPI Summary: 21M presents with osteomyelitis for past couple days. He states he had right lower jaw pain for over a week and it got worse with past 4 days. He was seen here on the eighth and had a CT showed osteomyelitis. Before results could be discussed with patient he eloped. He came back the next day and was admitted to the hospitalist service. Due to no oral surgeon be able to consult here was transferred to [facility]. Patient was at [facility] until this morning when he left because he felt like nothing was being done for him. Patient states that they are going to give him an oral surgery referral which he has for tomorrow at [facility] in [place]. He states he believes he was in the be on oral medications for antibiotics. He eloped from [facility] before further discussion for disposition could occurred. He denies any fevers currently. They have since resolved. He has minimal pain unless you push on the area. He still has an abscess present in his mouth. He was an IV drug user but hasn't used in some time. No other medical conditions. Denies any chest pain or shortness of breath. No difficulty swallowing. Not able to eat much due to the dental infection. He denies any sore throat. He has been receiving vancomycin for the past couple days. He has a dental abscess at lower right 1st molar per CT. per noted from [facility] patient had surgical consult with dentist and they recommended maxillofacial surgeon. The plan for him to see infectious disease except patient had left AMA. - History of Current Complaint Chief Complaint: EDDentalPain Time Seen by Provider: 10/01/17 20:57 - Allergies/Home Medications Allergies/Adverse Reactions: Allergies Allergy/AdvReac Type Severity Reaction Status Date / Time ibuprofen AdvReac GI Upset Verified 10/01/17 14:48 PMH/Surg Hx/FS Hx/Imm Hx Endocrine/Hematology History: Denies: Hx Diabetes, Hx Thyroid Disease Cardiovascular History: Denies: Hx Hypertension Respiratory History: Reports: Hx Seasonal Allergies Denies: Hx Asthma, Hx Chronic Obstructive Pulmonary Disease (COPD) GI History: Denies: Hx Ulcer Sensory History: Denies: Hx Contacts or Glasses, Hx Hearing Aid Opthamlomology History: Denies: Hx Contacts or Glasses Psychiatric History: Reports: Hx Substance Abuse - Surgical History Surgery Procedure, Year, and Place: as , "twisted bowel". Hand surgeries. 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 Smoking Status (MU): Heavy Every Day Tobacco Smoker Type: Cigarettes Amount Used/How Often: 1/4 PPD Review of Systems Negative: Fever Positive: Dental Pain Negative: Chest Pain Negative: Shortness Of Breath Negative: Weakness All Other Systems Reviewed And Are Negative: Yes Physical Exam Triage Information Reviewed: Yes Vital Signs On Initial Exam: Initial Vitals Temp Pulse Resp BP Pulse Ox 98.6 F 94 20 166/82 100 10/01/17 19:41 10/01/17 19:41 10/01/17 19:41 10/01/17 19:41 10/01/17 19:41 Vital Signs Reviewed: Yes Appearance: Positive: Well-Appearing Skin: Positive: Warm, Dry Head/Face: Positive: Normal Head/Face Inspection Eyes: Positive: Normal, EOMI, KIAH, Conjunctiva Clear ENT: Positive: Normal ENT inspection, Pharynx normal, TMs normal Dental: Positive: Percussion Tenderness @ - 30, Abscess @ - 30 Neck: Positive: Supple, Nontender, Enlarged Nodes @ - cervical Respiratory/Lung Sounds: Positive: Clear to Auscultation, Breath Sounds Present Cardiovascular: Positive: Normal, RRR Musculoskeletal: Positive: Normal Neurological: Positive: Normal Psychiatric: Positive: Normal Diagnostics - Vital Signs Vital Signs Temp Pulse Resp BP Pulse Ox 10/01/17 19:41 98.6 F 94 20 166/82 100 - Laboratory Lab Results: Lab Results 10/01/17 Range/Units 21:10 WBC 10.8 (3.5-10.8) 10^3/ul RBC 5.08 (4.00-5.40) 10^6/ul Hgb 14.6 (14.0-18.0) g/dl Hct 44 (42-52) % MCV 86 (80-94) fL MCH 29 (27-31) pg MCHC 34 (31-36) g/dl RDW 14 (10.5-15) % Plt Count 297 (150-450) 10^3/ul MPV 7.8 (7.4-10.4) um3 Neut % (Auto) 80.9 (38-83) % Lymph % (Auto) 12.9 L (25-47) % Sibley % (Auto) 5.0 (0-7) % Eos % (Auto) 0.6 (0-6) % Baso % (Auto) 0.6 (0-2) % Absolute Neuts (auto) 8.8 H (1.5-7.7) 10^3/ul Absolute Lymphs (auto) 1.4 (1.0-4.8) 10^3/ul Absolute Monos (auto) 0.5 (0-0.8) 10^3/ul Absolute Eos (auto) 0.1 (0-0.6) 10^3/ul Absolute Basos (auto) 0.1 (0-0.2) 10^3/ul Absolute Nucleated RBC 0 10^3/ul Nucleated RBC % 0 Result Diagrams: 10/01/17 21:10 10/01/17 21:10 Lab Statement: Any lab studies that have been ordered have been reviewed, and results considered in the medical decision making process. EENT Course/Dx - Course Course Of Treatment: 21M presents with osteomyelitis for past couple days. He states he had right lower jaw pain for over a week and it got worse with past 4 days. He was seen here on the eighth and had a CT showed osteomyelitis. Before results could be discussed with patient he eloped. He came back the next day and was admitted to the hospitalist service. Due to no oral surgeon be able to consult here was transferred to [facility]. Patient was at [facility] until this morning when he left because he felt like nothing was being done for him. Patient states that they are going to give him an oral surgery referral which he has for tomorrow at [facility] in [place]. He states he believes he was in the be on oral medications for antibiotics. He eloped from [facility] before further discussion for disposition could occurred. He denies any fevers currently. They have since resolved. He has minimal pain unless you push on the area. He still has an abscess present in his mouth. He was an IV drug user but hasn't used in some time. No other medical conditions. Denies any chest pain or shortness of breath. No difficulty swallowing. Not able to eat much due to the dental infection. He denies any sore throat. He has been receiving vancomycin for the past couple days. He has a dental abscess at lower right 1st molar per CT. per noted from [facility] patient had surgical consult with dentist and they recommended maxillofacial surgeon. The plan for him to see infectious disease except patient had left AMA. on exam has abscess seen at tooth 30. some lymphadenopathy. lungs CTA. labs improved since prior visit. wbc normal. electrolytes normal. gave dose of vancyo here. discussed case with dr larios said to call infectious disease. explained story to dr benjamin and states that if has oral surgery follow up tomorrow can send home with oral clindmayin, have follow up with him in office. warned signs to return to ED for. discussed plan with patient and he agrees with such. - Differential Diagnoses Differential Diagnoses: Dental Abscess, Dental Caries, Other - osteo - Diagnoses Provider Diagnoses: Dental abscess, Osteomyelitis of mandible - Provider Notifications Discussed Care Of Patient With: Sathya Benjamin MD Time Discussed With Above Provider: 21:45 - can send home on clindamycin, have oral surgery follow up, follow up with office Discharge - Sign-Out/Discharge Documenting (check all that apply): Discharge/Admit/Transfer - Discharge Plan Condition: Stable Disposition: HOME Prescriptions: Clindamycin Cap(NF) [Clindamycin Cap 300 mg Cap(NF)] 300 mg PO TID #30 cap Patient Education Materials: Osteomyelitis (ED) Referrals: Lo DOWD,Sathya Guajardo [Medical Doctor] - Additional Instructions: Follow up with dentist tomorrow call dr Benjamin office tomorrow for follow up Take clindamycin three times a day for 10 days Take tyenlol every 6 hours for pain Return to ED if develop any fevers, or any new or worsening symptoms - Billing Disposition and Condition Condition: STABLE Disposition: Home Images - Images Dental: 1 - abscess
[2017-10-01 21:38] LABS: EGFR Non-African American 92.6 (>60)
[2017-10-01 21:41] LABS: INR 1.03 (0.77-1.02)
== END 2017-10-01 23:44 | disposition home or self-care (01) ==
LOC: ED 19:32
DX: M27.2 Inflammatory conditions of jaws (principal); K04.7 Periapical abscess without sinus; F17.210 Nicotine dependence, cigarettes, uncomplicated; Z88.6 Allergy status to analgesic agent
CPT/HCPCS: 36415; 80053; 83605; 85025; 85610; 85730; 87040; 96365; 99282; J3370

== ENCOUNTER 2018-03-23 05:30 | Emergency (ER) | payer OTHER ==
--- NOTE | 2018-03-23 05:47 | ED ---
Lower Extremity - History of Current Complaint Chief Complaint: EDExtremityLower Stated Complaint: ANKLE INJURY Pain Intensity: 9 - Allergies/Home Medications Allergies/Adverse Reactions: Allergies Allergy/AdvReac Type Severity Reaction Status Date / Time ibuprofen AdvReac GI Upset Verified 10/01/17 14:48 PMH/Surg Hx/FS Hx/Imm Hx Endocrine/Hematology History: Denies: Hx Diabetes, Hx Thyroid Disease Cardiovascular History: Denies: Hx Hypertension Respiratory History: Reports: Hx Seasonal Allergies Denies: Hx Asthma, Hx Chronic Obstructive Pulmonary Disease (COPD) GI History: Denies: Hx Ulcer Sensory History: Denies: Hx Contacts or Glasses, Hx Hearing Aid Opthamlomology History: Denies: Hx Contacts or Glasses Psychiatric History: Reports: Hx Substance Abuse - Surgical History Surgery Procedure, Year, and Place: as , "twisted bowel". Hand surgeries. 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 Smoking Status (MU): Heavy Every Day Tobacco Smoker Type: Cigarettes Amount Used/How Often: 1/4 PPD Review of Systems All Other Systems Reviewed And Are Negative: Yes Physical Exam - Summary Physical Exam Summary: Appearance: Well appearing, no pain distress Skin: warm, dry, reflects adequate perfusion Head/face: normal Eyes: EOMI, KIAH ENT: normal Neck: supple, non-tender Respiratory: CTA, breath sounds present Cardiovascular: RRR, pulses symmetrical Abdomen: non-tender, soft Musculoskeletal: normal, strength/ROM intact Neuro: normal, sensory motor intact, A&Ox3 Triage Information Reviewed: Yes Vital Signs On Initial Exam: Initial Vitals Temp Pulse Resp BP Pulse Ox 99.5 F 89 18 183/107 99 03/23/18 05:37 03/23/18 05:37 03/23/18 05:37 03/23/18 05:37 03/23/18 05:37 Vital Signs Reviewed: Yes Diagnostics - Vital Signs Vital Signs Temp Pulse Resp BP Pulse Ox 03/23/18 05:37 99.5 F 89 18 183/107 99 - Laboratory Lab Statement: Any lab studies that have been ordered have been reviewed, and results considered in the medical decision making process. Discharge - Discharge Plan Referrals: No Primary Care Phys,NOPCP [Primary Care Provider] - - Attestation Statements Document Initiated by Malachi: Yes Documenting Scribe: Alina Olson Provider For Whom Malachi is Documenting (Include Credential): Dr. Clayton Flaherty MD Scribe Attestation: Alina Aguila scribed for Dr. Clayton Flaherty MD on 03/23/18 at 0541. Scribe Documentation Reviewed: Yes Provider Attestation: The documentation as recorded by the Alina owen accurately reflects the service I personally performed and the decisions made by me, Dr. Clayton Flaherty MD Status of Scribe Document: Viewed
[2018-03-23] MEDS ORDERED: Gabapentin CAP(*) 300 MG PO ONE (06:17)
[2018-03-23] MEDS ORDERED: Buprenorp/Nalox 8-2 MG SL TAB.SL PO ONE (06:21)
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
[2018-03-23] MEDS ORDERED: Famotidine TAB* 20 MG PO ONE (07:13)
[2018-03-23 07:15] VITALS: BP 165/87
== END 2018-03-23 07:14 | disposition home or self-care (01) ==
LOC: ED 05:30
DX: S92.902A Unspecified fracture of left foot, initial encounter for closed fracture (principal); W18.30XA Fall on same level, unspecified, initial encounter; Y92.410 Unspecified street and highway as the place of occurrence of the external cause; F17.210 Nicotine dependence, cigarettes, uncomplicated
CPT/HCPCS: 99283; A9270-GY

== ENCOUNTER 2018-05-05 14:04 | Emergency (ER) | payer OTHER ==
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
[2018-05-05] MEDS ORDERED: Lidocaine 1% INJ* 10 MG/ML 30 ML SDV ONE (14:32)
[2018-05-05] MEDS ORDERED: Tetan/Diph/Pertus SYR(Tdap)* 0.5 ML SYR(BOOSTRIX) use SYR IM ONE (15:02)
[2018-05-05] MEDS ORDERED: Amoxicillin/Clavulanate TAB* 875 MG PO ONE (15:02)
[2018-05-05 15:35] VITALS: BP 140/88
== END 2018-05-05 15:36 | disposition home or self-care (01) ==
LOC: ED 14:04
DX: S51.812A Laceration without foreign body of left forearm, initial encounter (principal); K21.9 Gastro-esophageal reflux disease without esophagitis; W26.0XXA Contact with knife, initial encounter; Y92.9 Unspecified place or not applicable; F17.210 Nicotine dependence, cigarettes, uncomplicated
CPT/HCPCS: 12004; 36415; 86703; 90471; 90715; 99282; A9270-GY

== ENCOUNTER 2018-06-11 09:24 | Day surgery (SDC) | payer OTHER ==
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
[~2018-06-11 09:24] MED LIST: Buffered Lidocaine 1% SYRIN* 1 ML/SYRINGE INTRADERM ONE; Dexamethasone IV* 4 MG/ML 1 ML (4 MG) IV SLOW PU ONE; Dexamethasone IV* 4 MG/ML 1 ML (4 MG) ONE; Famotidine IV* 10 MG/ML 2 ML (20 mg) IV ONE; Famotidine IV* 10 MG/ML 2 ML (20 mg) ONE; Lactated Ringers 1000 ML Bag* 1,000 ML IV SCH; ceFAZolin 2 GM PREMIX in ORs 2 GM/50 ML BAG IVPB ONE
[2018-06-11] MEDS ORDERED: Ondansetron INJ* 2 MG/ML VIAL ONE (10:58)
[2018-06-11] MEDS ORDERED: Propofol* 10 MG/ML 20 ML BTL ONE (10:58)
[2018-06-11] MEDS ORDERED: Ketorolac INJ* 30 MG/ML 1 ML VIAL ONE (10:58)
[2018-06-11] MEDS ORDERED: Lidocaine 2% PF * 5 ML VIAL ONE (10:59)
[2018-06-11] MEDS ORDERED: Bupivacaine 0.5% SDV PF* 30ML VIAL ONE (11:02)
[2018-06-11] MEDS ORDERED: fentaNYL* 50 MCG/ML 2 ML VIAL (100 MCG VIAL) ONE (11:05)
[2018-06-11] MEDS ORDERED: Midazolam* 1 MG/ML 5 ML VIAL (5 MG) ONE (11:05)
[2018-06-11] MEDS ORDERED: fentaNYL* 50 MCG/ML 5 ML VIAL (250 MCG VIAL) ONE (11:05)
[2018-06-11] MEDS ORDERED: fentaNYL* 50 MCG/ML 2 ML VIAL (100 MCG VIAL) IV PRN (11:38)
[2018-06-11] MEDS ORDERED: DiMENhydriNATE IV* 50 MG/ML VIAL IV PUSH PRN (11:38)
[2018-06-11] MEDS ORDERED: oxyCODONE/Acetamin 5/325 MG* TAB PO PRN (11:38)
[2018-06-11] MEDS ORDERED: Naloxone* 0.4 MG/ML 1 ML VIAL IV PRN (11:38)
[2018-06-11] MEDS ORDERED: Ondansetron INJ* 2 MG/ML VIAL IV PRN (11:38)
[2018-06-11] MEDS ORDERED: oxyCODONE/Acetamin 5/325 MG* TAB ONE (12:43)
[2018-06-11 13:06] VITALS: BP 129/78
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
== END 2018-06-11 13:18 | disposition home or self-care (01) ==
LOC: OREAST 09:24
PROVIDERS: ATTEND Orthopaedic Surgery
DX: S62.316A Displaced fracture of base of fifth metacarpal bone, right hand, initial encounter for closed fracture (principal); Y04.0XXA Assault by unarmed brawl or fight, initial encounter; Y92.9 Unspecified place or not applicable; Z87.891 Personal history of nicotine dependence
CPT/HCPCS: A9270-GY; C1776; J0690; J1100; J1885; J2250; J2405; J2704; J3010